=== PATIENT | female | born 1950 | race Caucasian/White ===

== ENCOUNTER 2021-01-06 03:32 | Inpatient (IN) | payer MEDICARE, BC ==
[~2021-01-06] VITALS: Ht 165.1 cm; Wt 53.1 kg
--- NOTE | 2021-01-06 03:35 | NUR ---
PT AAOX4. AMBULATORY WITH STEADY GAIT. BIBRA FROM HOME C/O FEVER AND GENERAL WEAKNESS. PLACED IN GOWN, ON MONITOR, AND PULSE OX IN BED 6. NO ACUTE DISTRESS NOTED. AWAITING ER MD FOR EVAL AND ORDERS.
[2021-01-06] MEDS ORDERED: ACETAMINOPHEN ES 500 MG TABLET ONE (03:53)
[2021-01-06] MEDS ORDERED: PIPERACILLIN /TAZOBACTAM 3.375 G VIAL IV ONE (03:53)
[2021-01-06] MEDS ORDERED: ACETAMINOPHEN ES 500 MG TABLET PO ONE (04:00)
[2021-01-06] MEDS ORDERED: VANCOMYCIN 1 GM in IV D5W 250 ML IV ONE (04:00)
[2021-01-06] MEDS ORDERED: IV NS 0.9% 2,000 ML IV ONE (04:00)
[2021-01-06] MEDS ORDERED: PIPERACILLIN /TAZOBACTAM 3.375 G in IV D5W 50 ML IV ONE (04:00)
--- NOTE | 2021-01-06 04:00 | NUR ---
IV LINE ESTABLISHED AT LFA 20G, BLOOD DRAWN AND SENT TO LAB
[2021-01-06 04:15] LABS: BASOPHILS # (AUTO) 0.1 K/uL (0.0-0.2); BASOPHILS % (AUTO) 1.3 % (0.0-2.0); EOSINOPHILS % (AUTO) 1.2 % (0.0-6.0); HEMATOCRIT 37 % (33-45); HEMOGLOBIN 11.8 g/dL (11.5-14.8); LYMPHOCYTES # (AUTO) 1.6 K/uL (0.8-4.8); LYMPHOCYTES % (AUTO) 14.5 % (20.0-44.0); MEAN CORPUSCULAR HGB CONC 32 g/dl (31.0-36.0); MEAN CORPUSCULAR VOLUME 82 fL (82-100); MONOCYTES % (AUTO) 9.3 % (2.0-12.0); NEUTROPHILS # (AUTO) 8.3 K/uL (1.8-8.9); NEUTROPHILS % (AUTO) 73.7 % (43.0-81.0); PLATELET COUNT (AUTO) 466 K/uL (150-450); WHITE BLOOD COUNT (AUTO) 11.3 K/uL (4.3-11.0)
--- NOTE | 2021-01-06 04:18 | NUR ---
DAVIDID SWABBED, SENT TO LAB.
--- NOTE | 2021-01-06 04:18 | NUR ---
URINE COLLECTED, SENT TO LAB.
[2021-01-06] MEDS ORDERED: VANCOMYCIN 1 GM VIAL ONE (04:20)
--- NOTE | 2021-01-06 04:28 | NUR ---
CXR DONE AT BEDSIDE. PT TO RADIOLOGY FOR CT OF HEAD, ABDOMEN, PELVIS
[2021-01-06 04:33] LABS: BILIRUBIN,URINE NEGATIVE (NEGATIVE); COLOR,URINE YELLOW (YELLOW); LEUKOCYTE ESTERASE ,URINE TRACE (NEGATIVE); NITRITE, URINE NEGATIVE (NEGATIVE); PROTEIN,URINE NEGATIVE (NEGATIVE); UGLUCOSE NEGATIVE (NEGATIVE)
[2021-01-06 04:40] LABS: ALANINE AMINOTRANSFERASE 24 U/L (12-78); ALBUMIN 2.8 g/dL (3.4-5.0); ALKALINE PHOSPHATASE 170 U/L (46-116); ASPARTATE AMINOTRANSFERASE 28 U/L (15-37); BILIRUBIN,DIRECT 0.2 mg/dL (0.0-0.2); BILIRUBIN,TOTAL 0.7 mg/dL (0.2-1.0); CARBON DIOXIDE 25 mmol/L (21-32); CHLORIDE 104 mmol/L (98-107); GLUCOSE 120 mg/dL (74-106); POTASSIUM 4.1 mmol/L (3.5-5.1); SODIUM SERUM 137 mmol/L (136-145); TOTAL PROTEIN, SERUM 7.7 g/dL (6.4-8.2); UREA NITROGEN, BLOOD 11 mg/dL (7-18)
[2021-01-06 04:52] LABS: BACTERIA,URINE Few /HPF (None Seen); RBC,URINE 0-2 /HPF (0-2)
[2021-01-06 04:53] LABS: MUCUS,URINE Few /LPF (None Seen); SQUAMOUS EPITHELIAL CELL,UR Few /HPF (None Seen)
--- NOTE | 2021-01-06 05:10 | NUR ---
MRSA SWAB COLLECTED AND SENT TO LAB. PATIENT'S BELONGINGS LIST DONE.
--- NOTE | 2021-01-06 05:16 | NUR ---
CALLED EMILY TO HAVE IMAGES READ
--- NOTE | 2021-01-06 05:30 | NUR ---
[facility] PAGED
[2021-01-06] MEDS ORDERED: ONDANSETRON HCL/PF 4 MG/2 ML VIAL IVP PRN (06:00)
[2021-01-06] MEDS ORDERED: MORPHINE SULFATE INJ 2 MG/ML DISP.SYRIN IV PRN (06:00)
[2021-01-06] MEDS ORDERED: MAG HYDROX/AL HYDROX/SIMETH 30 ML UDC PO PRN (06:00)
[2021-01-06] MEDS ORDERED: hydrALAZINE HCL IV 20 MG VIAL IV PRN (06:00)
[2021-01-06] MEDS ORDERED: LABETALOL 20 MG/4 ML VIAL IV PRN (06:00)
--- NOTE | 2021-01-06 07:22 | NUR ---
ASSESSED PT ON BED AWAKE AND ALERT, NOT IN RESPIRATORY DISTRESS, V/S STABLE, KEPT RESTED AND COMFORTABLE. WILL CONTINUE TO MONITOR.
--- NOTE | 2021-01-06 08:08 | NUR ---
THE PATIENT IS HAVING BREAKFAST
[2021-01-06] MEDS ORDERED: OLAN5TAB3 PO (08:18)
[2021-01-06] MEDS ORDERED: LITH150C PO (08:18)
[2021-01-06] MEDS ORDERED: ENOXAPARIN SODIUM 40 MG/0.4 ML DISP.SYRIN SQ ONE (08:36)
[2021-01-06] MEDS: CEFTRIAXONE 1 G in IV D5W 50 ML IV SCH (08:45)
[2021-01-06] MEDS: ENOXAPARIN SODIUM 40 MG/0.4 ML DISP.SYRIN SQ SCH (08:45)
--- NOTE | 2021-01-06 09:05 | NUR ---
GOT BED 320-1
--- NOTE | 2021-01-06 09:06 | NUR ---
ROOM GIVEN 320-1
--- NOTE | 2021-01-06 09:09 | NUR ---
REPORT GIVEN TO AMARILIS BARNES FOR COURTNEY.
--- NOTE | 2021-01-06 09:15 | NUR ---
TELE ADMISSION NOTES RECEIVED ADMISSION. PATIENT ALERT AND ORIENTED X4. REPORT RECEIVED BY CHARITY, ED NURSE. NO S/S OF DISTRESS NOTED. NO SOB. BREATHING IS EVEN AND UNLABORED. IV ACCESS LFA#20 PATENT AND INTACT. ORIENTED PATIENT TO ROOM, UNIT AND STAFF. CALL LIGHT WITHIN REACH. SAFETY MEASURES IN PLACE WITH BED LOCKED AT LOWEST POSITION. WILL CONTINUE TO MONITOR PATIENT THROUGHOUT SHIFT.
[2021-01-06] MEDS: IV NS 0.9% 1,000 ML IV PRN (10:22)
[2021-01-06] MEDS: ACETAMINOPHEN 325 MG TABLET PO PRN ×2 (11:18→17:31)
[2021-01-06 12:00] VITALS: BP 112/63
[2021-01-06] MEDS ORDERED: MAGNESIUM CITRATE 296 ML BOTTLE PO ONE (12:00)
[2021-01-06] MEDS: VANCOMYCIN HCL 1 GM in IV D5W 260 ML IV SCH (15:41)
[2021-01-06 16:00] VITALS: BP 135/68
--- NOTE | 2021-01-06 18:52 | NUR ---
TELE CLOSING NOTES PATIENT IS RESTING IN BED, COMFORTABLY. NO S/S OF DISTRESS NOTED. NO SOB. BREATHING IS EVEN AND UNLABORED. IV ACCESS LFA#20 PATENT AND INTACT. ALL NEEDS MET THROUGHOUT SHIFT. ELEVATED TEMPERATURE IMPROVED WITH COOLING MEASURES AND TYLENOL 650MG. CALL LIGHT WITHIN REACH. SAFETY MEASURES MAINTAINED. WILL ENDORSE CONTINUITY OF CARE TO ONCOMING SHIFT.
--- NOTE | 2021-01-06 19:51 | NUR ---
[employer] RELATIONS COORDINATOR OPENING NOTES RECEIVED PT IN BED,WITH EYES OPEN AND FAMILY MEMBER AT BEDSIDE. ON ROOM AIR AND TOLERATING WELL. NO SOB NOTED. NO S/SX OF RESPIRATORY DISTRESS NOTED. TELE MONITOR READS SINUS RHYTHM WITH RATE AT 95. IV ACCESS IN L FA #20G RUNNING NS @ 75 MLS/HR. SAFETY PRECAUTIONS IN PLACE: BED IN LOWEST, LOCKED POSITION, BRAKES ON, AND SIDERAILS UPx2. TABLE AND CALL LIGHT WITHIN REACH. WILL CONTINUE TO MONITOR.
[2021-01-06 20:00] VITALS: BP 143/76
[2021-01-06] MEDS: OLANZAPINE 5 MG TABLET PO SCH (21:02)
[2021-01-06] MEDS ORDERED: METRONIDAZOLE 500MG/ NS 100ML 100 ML IV ONE (22:20)
[2021-01-06] MEDS: METRONIDAZOLE 500MG/ NS 100ML 500 MG in PREMIX 1 EA IV SCH (22:22)
[2021-01-07] VITALS: BP 120/56
[2021-01-07] MEDS: VANCOMYCIN HCL 1 GM in IV D5W 260 ML IV SCH ×2 (03:16→16:42)
--- NOTE | 2021-01-07 03:44 | NUR ---
PT HAD FEVER OF 100.1 @ 1999. USED COOLING MEASURES - ICE PACKS. TEMPERATURE WENT DOWN TO 98.1. WILL CONTINUE TO MONITOR.
[2021-01-07 04:00] VITALS: BP 136/70
[2021-01-07] MEDS ORDERED: METRONIDAZOLE 500MG/ NS 100ML 100 ML IV ONE (05:28)
[2021-01-07] MEDS: METRONIDAZOLE 500MG/ NS 100ML 500 MG in PREMIX 1 EA IV SCH ×3 (05:31→21:40)
[2021-01-07] MEDS: ACETAMINOPHEN 325 MG TABLET PO PRN ×2 (06:28→11:35)
--- NOTE | 2021-01-07 06:57 | NUR ---
SHOE SPRAYER CLOSING NOTES PT IN BED SLEEPING, AWAKENS TO VERBAL STIMULI. ON ROOM AIR AND TOLERATING WELL. NO SOB NOTED. NO S/SX OF RESPIRATORY DISTRESS NOTED. TELE MONITOR READS SINUS RHYTHM WITH RATE AT 95. IV ACCESS IN L FA #20G RUNNING NS @ 75 MLS/HR. ALL NEEDS MET. PT KEPT CLEAN AND DRY. SAFETY PRECAUTIONS IN PLACE: BED IN LOWEST, LOCKED POSITION, BRAKES ON, AND SIDERAILS UPx2. TABLE AND CALL LIGHT WITHIN REACH. WILL ENDORSE TO ONCOMING SHIFT.
--- NOTE | 2021-01-07 07:15 | NUR ---
MS RN OPENING NOTE RECEIVED PT AWAKE IN BED. A/OX4. PT ON ROOM AIR. NO SOB, RESPIRATORY DISTRESS, AND NO C/O PAIN NOTED AT THIS TIME. PT IS AMBULATORY. NO IV ACCESS NOTED. SAFETY MEASURES MAINTAINED, BED IN LOWEST LOCKED POSITION, HOB ELEVATED, SIDE RAILS UP X2. CALL LIGHT AND TABLE WITHIN REACH. WILL CONTINUE TO WITH PLAN OF CARE
[2021-01-07 08:06] VITALS: BP 120/88
[2021-01-07] MEDS ORDERED: CEFTRIAXONE 1 G in IV D5W 50 ML IV SCH (09:00)
[2021-01-07 09:08] LABS: BASOPHILS # (AUTO) 0.1 K/uL (0.0-0.2); EOSINOPHILS % (AUTO) 1.9 % (0.0-6.0); HEMATOCRIT 33 % (33-45); HEMOGLOBIN 10.7 g/dL (11.5-14.8); LYMPHOCYTES # (AUTO) 1.5 K/uL (0.8-4.8); LYMPHOCYTES % (AUTO) 17.6 % (20.0-44.0); MEAN CORPUSCULAR HGB CONC 32 g/dl (31.0-36.0); MEAN CORPUSCULAR VOLUME 81 fL (82-100); MONOCYTES # (AUTO) 0.9 K/uL (0.1-1.30); MONOCYTES % (AUTO) 9.7 % (2.0-12.0); NEUTROPHILS # (AUTO) 6.1 K/uL (1.8-8.9); NEUTROPHILS % (AUTO) 69.8 % (43.0-81.0); PLATELET COUNT (AUTO) 397 K/uL (150-450); RED BLOOD CELL COUNT(AUTO) 4.11 MIL/uL (4.0-5.2); WHITE BLOOD COUNT (AUTO) 8.8 K/uL (4.3-11.0)
[2021-01-07] MEDS: ENOXAPARIN SODIUM 40 MG/0.4 ML DISP.SYRIN SQ SCH (09:27)
[2021-01-07 09:29] LABS: ALBUMIN 2.3 g/dL (3.4-5.0); BILIRUBIN,TOTAL 0.4 mg/dL (0.2-1.0); CALCIUM, SERUM 8.3 mg/dL (8.5-10.1); CREATININE 0.7 mg/dL (0.6-1.3); MAGNESIUM 2.3 mg/dL (1.8-2.4); PHOSPHORUS 2.4 mg/dL (2.5-4.9); TOTAL PROTEIN, SERUM 6.6 g/dL (6.4-8.2)
[2021-01-07] MEDS: CEFTRIAXONE 1 G in IV D5W 50 ML IV SCH (09:29)
[2021-01-07] MEDS: LITHIUM CARBONATE 150 MG CAPSULE PO SCH (09:30)
[2021-01-07] MEDS: PANTOPRAZOLE 40 MG TABLET.DR PO SCH (09:30)
[2021-01-07] MEDS ORDERED: K PHOS NEUTRAL 250 MG TABLET PO ONE (12:00)
[2021-01-07 16:22] VITALS: BP 108/69
--- NOTE | 2021-01-07 19:00 | NUR ---
MS RN CLOSING NOTE RECEIVED PT AWAKE IN BED. A/OX4. PT ON ROOM AIR. NO SOB, RESPIRATORY DISTRESS, AND NO C/O PAIN NOTED AT THIS TIME. PT IS AMBULATORY. NO IV ACCESS NOTED. SAFETY MEASURES MAINTAINED, BED IN LOWEST LOCKED POSITION, HOB ELEVATED, SIDE RAILS UP X2. CALL LIGHT AND TABLE WITHIN REACH. WILL ENDORSE TO NEXT SHIFT FOR CONTINUITY OF CARE
[2021-01-07 20:00] VITALS: BP 125/76
[2021-01-07] MEDS: OLANZAPINE 5 MG TABLET PO SCH (22:17)
[2021-01-08] MEDS: VANCOMYCIN HCL 1 GM in IV D5W 260 ML IV SCH (04:03)
[2021-01-08] MEDS: METRONIDAZOLE 500MG/ NS 100ML 500 MG in PREMIX 1 EA IV SCH ×2 (05:24→12:43)
--- NOTE | 2021-01-08 06:15 | NUR ---
MS RN CLOSING NOTE PT AWAKE IN BED, A/O X4. PT IS STABLE ON ROOM AIR. NO SOB NOTED, NO S/S OF RESPIRATORY DISTRESS. PT IS BEDREST. IV ACCESS INTACT, PATENT AND FLUSHING WELL, ALL NEEDS, CARE, AND MEDICATIONS ADMINISTERED PER ORDER. SAFETY, SEIZURE, AND ASPIRATION PRECAUTIONS MAINTAINED AT ALL TIMES. BED IN LOWEST LOCKED POSITION, HOB ELEVATED, SIDE RAILS UP X2. CALL LIGHT AND TABLE WITHIN REACH. WILL ENDORSE TO ONCOMING NURSE FOR COURTNEY.
[2021-01-08 06:28] LABS: BASOPHILS # (AUTO) 0.1 K/uL (0.0-0.2); BASOPHILS % (AUTO) 1.1 % (0.0-2.0); EOSINOPHILS % (AUTO) 2.9 % (0.0-6.0); HEMATOCRIT 33 % (33-45); HEMOGLOBIN 10.7 g/dL (11.5-14.8); LYMPHOCYTES # (AUTO) 1.6 K/uL (0.8-4.8); LYMPHOCYTES % (AUTO) 20.7 % (20.0-44.0); MEAN CORPUSCULAR HGB CONC 32 g/dl (31.0-36.0); MEAN CORPUSCULAR VOLUME 81 fL (82-100); MONOCYTES # (AUTO) 0.7 K/uL (0.1-1.30); NEUTROPHILS % (AUTO) 66.3 % (43.0-81.0); PLATELET COUNT (AUTO) 389 K/uL (150-450); WHITE BLOOD COUNT (AUTO) 7.5 K/uL (4.3-11.0)
[2021-01-08 07:07] LABS: CALCIUM, SERUM 8.7 mg/dL (8.5-10.1); CREATININE 0.8 mg/dL (0.6-1.3); MAGNESIUM 2.5 mg/dL (1.8-2.4); POTASSIUM 3.8 mmol/L (3.5-5.1)
[2021-01-08] MEDS: IV NS 0.9% 1,000 ML IV PRN (07:36)
[2021-01-08] MEDS: PANTOPRAZOLE 40 MG TABLET.DR PO SCH (07:57)
--- NOTE | 2021-01-08 08:13 | NUR ---
MS/RN OPENING NOTES RECEIVED PATIENT ON BED AWAKE, ALERT AND ORIENTED X4. PATIENT IS ON ROOM AIR. PATIENT IN NO APPARENT RESPIRATORY DISTRESS NOTED. NO COMPLAINED OF PAIN NOTED AT THIS TIME. WILL CONTINUE TO MONITOR.
[2021-01-08] MEDS ORDERED: IOHEXOL-300 100 ML VIAL IV ONE (08:47)
[2021-01-08] MEDS ORDERED: CT SWABBABLE VALVE TRANS SET 1 EA INFUS.SET MC ONE (08:47)
[2021-01-08] MEDS ORDERED: IV NS 0.9% 250 ML IV ONE (08:47)
--- NOTE | 2021-01-08 08:54 | NUR ---
MS/RN NOTES PATIENT IS ALERT AND ORIENTED X4. PATIENT IS OUT IN THE ROOM FUR CLIPPER BY X-RAY TECH.
--- NOTE | 2021-01-08 09:20 | NUR ---
RN NOTES PATIENT CAME BACK FROM RADIOLOGY.
[2021-01-08] MEDS: CEFTRIAXONE 1 G in IV D5W 50 ML IV SCH (10:01)
[2021-01-08] MEDS: LITHIUM CARBONATE 150 MG CAPSULE PO SCH (10:01)
[2021-01-08] MEDS: ENOXAPARIN SODIUM 40 MG/0.4 ML DISP.SYRIN SQ SCH (10:08)
--- NOTE | 2021-01-08 14:55 | NUR ---
RN NOTES PATIENT IS ALERT AND ORIENTED X4. PATIENT IS ON ROOM AIR. PATIENT IN NO APPARENT RESPIRATORY DISTRESS NOTED. NO COMPLAINED OF PAIN. SEEN AND EXAMINED BY MD WITH ORDERS MADE AND CARRIED OUT. ALL DUE MEDICATIONS WAS GIVEN. DISCHARGED INSTRUCTIONS WAS GIVEN AND PATIENT VERBALIZED UNDERSTANDING. 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
[2021-01-08] MEDS ORDERED: VANCOMYCIN HCL 0.75 GM in IV D5W 250 ML IV SCH (16:00)
== END 2021-01-08 14:57 | disposition home or self-care (01) | DRG 872 ==
LOC: ER 03:39 → TRANSITION 08:18 → TELE 09:07 → MED 01-07 10:14
PROVIDERS: ADMIT Nurse Practitioner Family
DX: A41.89 Other specified sepsis (principal); E44.0 Moderate protein-calorie malnutrition; N39.0 Urinary tract infection, site not specified; K59.00 Constipation, unspecified; F31.9 Bipolar disorder, unspecified; D18.03 Hemangioma of intra-abdominal structures; K80.20 Calculus of gallbladder without cholecystitis without obstruction; K57.30 Diverticulosis of large intestine without perforation or abscess without bleeding; Z20.822 Contact with and (suspected) exposure to COVID-19; Z88.0 Allergy status to penicillin; D47.3 Essential (hemorrhagic) thrombocythemia; R73.9 Hyperglycemia, unspecified; B34.9 Viral infection, unspecified; I70.0 Atherosclerosis of aorta; Z80.8 Family history of malignant neoplasm of other organs or systems
CPT/HCPCS: 36415; 70450-TC; 71045-TC; 71260-TC; 80048-TC; 80053-TC; 80076-TC; 80202-TC; 81001; 82550-TC; 83605-TC; 83735-TC; 83880; 84100-TC; 84484-TC; 85025-TC; 85730-TC; 87040-TC; 87081-TC; 87086-TC; A4216; C9803; G0378; J0696; J1650; J2270; J2405; J2543; J3370; J7030; J7050; J7060; Q9967